=== PATIENT | female | born 1965 | race Caucasian/White ===

== ENCOUNTER 2021-01-05 14:22 | Inpatient (IN) | payer MEDICARE, OTHER ==
[2021-01-05] MEDS ORDERED: ONDANSETRON 4 MG/2 ML VIAL IVP STA (14:33)
[2021-01-05] MEDS ORDERED: SODIUM CHLORIDE 0.9% 1,000 ML IV STA (14:33)
--- NOTE | 2021-01-05 14:37 | ED ---
General Adult HPI - General Stated complaint: High blood sugar Time Seen by Provider: 01/05/21 14:23 - History of Present Illness Initial comments: Dictation was produced using [employer] dictation software. please excuse any grammatical, word or spelling errors. Chief Complaint: 55-year-old female brought in by EMS for elevated blood sugar, nausea and vomiting and total body pain History of Present Illness: Patient is a 55-year-old female she is an insulin- dependent diabetic. Patient was brought in by EMS for elevated blood sugar n ausea and vomiting. [facility]. Supposedly there is a warrant for her respiration was just released today. Over the last 48 hours she's been without any of her medications. Patient has not had insulin since 2 days ago. Patient also has been without her analgesics. EMS was called. EMS reports that patient's blood sugar was elevated. She had several bouts of his emesis. Patient complains of total body pain. The ROS documented in this emergency department record has been reviewed and confirmed by me. Those systems with pertinent positive or negative responses have been documented in the HPI. All other systems are other negative and/or noncontributory. PHYSICAL EXAM: General Impression: Alert and oriented x3, acute distress secondary to nausea and vomiting HEENT: Normocephalic atraumatic, extra-ocular movements intact, pupils equal and reactive to light bilaterally, dry mucous membranes Cardiovascular: Heart regular rate and rhythm Chest: Able to complete full sentences, no retractions, no tachypnea Abdomen: abdomen soft, diffuse tenderness, non-distended, no organomegaly Musculoskeletal: Pulses present and equal in all extremities, no peripheral edema Motor: no focal deficits noted Neurological: CN II-XII grossly intact, no focal motor or sensory deficits noted Skin: Intact with no visualized rashes ED course: 55-year-old insulin-dependent dependent diabetic presents to the emergency Department for hyperglycemia, nausea vomiting total body pain. Laboratory evaluation obtained. Mild leukocytosis of 12.0. Venous blood gas shows pH of 7.36 by mouth CO2 of 35 with a bicarb of 20. Metabolic panel shows bicarb of 18 with gap of 13. Glucose is 504. Clinical presentation consistent with DKA. Her EKGs mild with bicarb of 18. Case is discussed with Dr. Keyes who agreeable with fluid administration and aliquots of insulin. Patient will be admitted under the care of [facility] hospitalist group. - Related Data Allergies Allergy/AdvReac Type Severity Reaction Status Date / Time No Known Allergies Allergy Verified 01/05/21 16:07 Review of Systems ROS Statement: Those systems with pertinent positive or pertinent negative responses have been documented in the HPI. ROS Other: All systems not noted in ROS Statement are negative. Course Vital Signs 01/05/21 01/05/21 14:24 15:31 Temperature 97.7 F Pulse Rate 70 63 Respiratory 18 18 Rate Blood Pressure 222/104 208/111 O2 Sat by Pulse 95 97 Oximetry Medical Decision Making - Lab Data Result diagrams: 01/05/21 15:06 01/05/21 15:06 Lab Results 01/05/21 01/05/21 01/05/21 Range/Units 14:38 15:06 15:06 WBC 12.0 H (3.8-10.6) k/uL RBC 4.00 (3.80-5.40) m/uL Hgb 12.5 (11.4-16.0) gm/dL Hct 38.4 (34.0-46.0) % MCV 96.0 (80.0-100.0) fL MCH 31.2 (25.0-35.0) pg MCHC 32.5 (31.0-37.0) g/dL RDW 13.3 (11.5-15.5) % Plt Count 253 (150-450) k/uL MPV 7.9 Neutrophils % 89 % Lymphocytes % 8 % Monocytes % 2 % Eosinophils % 1 % Basophils % 0 % Neutrophils # 10.7 H (1.3-7.7) k/uL Lymphocytes # 1.0 (1.0-4.8) k/uL Monocytes # 0.3 (0-1.0) k/uL Eosinophils # 0.1 (0-0.7) k/uL Basophils # 0.0 (0-0.2) k/uL VBG pH (7.31-7.41) VBG pCO2 (37-51) mmHg VBG HCO3 (24-28) mmol/L Sodium 133 L (137-145) mmol/L Potassium 4.4 (3.5-5.1) mmol/L Chloride 102 (98-107) mmol/L Carbon Dioxide 18 L (22-30) mmol/L Anion Gap 13 mmol/L BUN 26 H (7-17) mg/dL Creatinine 0.71 (0.52-1.04) mg/dL Est GFR (CKD-EPI)AfAm >90 (>60 ml/min/1.73 sqM) Est GFR (CKD-EPI)NonAf >90 (>60 ml/min/1.73 sqM) Glucose 504 H* (74-99) mg/dL POC Glucose (mg/dL) 554 H (75-99) mg/dL POC Glu [employer] ID Belval, Cyn Plasma Lactic Acid Mitul (0.7-2.0) mmol/L Calcium 9.9 (8.4-10.2) mg/dL Magnesium 1.8 (1.6-2.3) mg/dL Total Bilirubin 0.7 (0.2-1.3) mg/dL AST 30 (14-36) U/L ALT 17 (4-34) U/L Alkaline Phosphatase 142 H (38-126) U/L Total Protein 7.7 (6.3-8.2) g/dL Albumin 4.1 (3.5-5.0) g/dL Acetone, Qual Positive (Negative) 01/05/21 01/05/21 Range/Units 15:06 15:06 WBC (3.8-10.6) k/uL RBC (3.80-5.40) m/uL Hgb (11.4-16.0) gm/dL Hct (34.0-46.0) % MCV (80.0-100.0) fL MCH (25.0-35.0) pg MCHC (31.0-37.0) g/dL RDW (11.5-15.5) % Plt Count (150-450) k/uL MPV Neutrophils % % Lymphocytes % % Monocytes % % Eosinophils % % Basophils % % Neutrophils # (1.3-7.7) k/uL Lymphocytes # (1.0-4.8) k/uL Monocytes # (0-1.0) k/uL Eosinophils # (0-0.7) k/uL Basophils # (0-0.2) k/uL VBG pH 7.36 (7.31-7.41) VBG pCO2 35 L (37-51) mmHg VBG HCO3 20 L (24-28) mmol/L Sodium (137-145) mmol/L Potassium (3.5-5.1) mmol/L Chloride (98-107) mmol/L Carbon Dioxide (22-30) mmol/L Anion Gap mmol/L BUN (7-17) mg/dL Creatinine (0.52-1.04) mg/dL Est GFR (CKD-EPI)AfAm (>60 ml/min/1.73 sqM) Est GFR (CKD-EPI)NonAf (>60 ml/min/1.73 sqM) Glucose (74-99) mg/dL POC Glucose (mg/dL) (75-99) mg/dL POC Glu [employer] ID Plasma Lactic Acid Mitul 1.5 (0.7-2.0) mmol/L Calcium (8.4-10.2) mg/dL Magnesium (1.6-2.3) mg/dL Total Bilirubin (0.2-1.3) mg/dL AST (14-36) U/L ALT (4-34) U/L Alkaline Phosphatase (38-126) U/L Total Protein (6.3-8.2) g/dL Albumin (3.5-5.0) g/dL Acetone, Qual (Negative) Critical Care Time Critical Care Time: Yes Total Critical Care Time: 33 Disposition Clinical Impression: DKA (diabetic ketoacidosis) Disposition: ADMITTED IP TO THIS [facility] Condition: Fair Referrals: Joshua Moseley MD [Primary Care Provider] - 1-2 days
[2021-01-05 14:39] LABS: Glucose,Whole Blood 554 mg/dL (75-99)
[2021-01-05 15:15] LABS: Basophils % (A) 0 %; Eosinophils # (A) 0.1 k/uL (0-0.7); Eosinophils % (A) 1 %; HCT 38.4 % (34.0-46.0); HGB 12.5 gm/dL (11.4-16.0); Lymphocytes % (A) 8 %; MCH 31.2 pg (25.0-35.0); MCHC 32.5 g/dL (31.0-37.0); Mean Platelet Volume 7.9; Monocytes # (A) 0.3 k/uL (0-1.0); Monocytes % (A) 2 %; Neutrophils # (A) 10.7 k/uL (1.3-7.7); Neutrophils % (A) 89 %; Platelet Count 253 k/uL (150-450); RDW 13.3 % (11.5-15.5); VBG PH 7.36 (7.31-7.41)
[2021-01-05 15:36] LABS: ALT 17 U/L (4-34); AST 30 U/L (14-36); African American GFR (CKD) >90 (>60 ml/min/1.73 sqM); Albumin 4.1 g/dL (3.5-5.0); Alkaline Phosphatase 142 U/L (38-126); Anion Gap 13 mmol/L; Blood Urea Nitrogen 26 mg/dL (7-17); Calcium 9.9 mg/dL (8.4-10.2); Carbon Dioxide 18 mmol/L (22-30); Chloride 102 mmol/L (98-107); Magnesium 1.8 mg/dL (1.6-2.3); Non-African American GFR(CKD) >90 (>60 ml/min/1.73 sqM); Potassium 4.4 mmol/L (3.5-5.1); Sodium 133 mmol/L (137-145); Total Bilirubin 0.7 mg/dL (0.2-1.3); Total Protein 7.7 g/dL (6.3-8.2)
[2021-01-05 15:42] LABS: Glucose 504 mg/dL (74-99)
[2021-01-05] MEDS ORDERED: LACTATED RINGERS 1,000 ML IV ONE (15:52)
[2021-01-05] MEDS ORDERED: HYDROmorphone 0.5 MG/0.5 ML SYRINGE IVP STA (15:55)
[2021-01-05] MEDS ORDERED: INSULIN REGULAR 100 UNIT/ML VIAL (IV) IV ONE (16:01)
[2021-01-05] MEDS: METOCLOPRAMIDE 5 MG/ML 2 ML VIAL IVP STA ×2 (16:05→16:07)
[2021-01-05] MEDS ORDERED: INSULIN REGULAR 100 UNIT/ML VIAL (IM/SQ) SQ ONE (16:21)
[2021-01-05] MEDS ORDERED: PROMETHAZINE 25 MG TAB PO STA (17:25)
[2021-01-05 17:26] LABS: Glucose,Whole Blood 316 mg/dL (75-99)
[2021-01-05] MEDS ORDERED: hydrALAZINE HCL 20 MG/ML 1 ML VIAL IVP PRN (18:15)
[2021-01-05] MEDS ORDERED: LORazepam 2 MG/ML INJ IV STA (18:15)
[2021-01-05 18:32] LABS: Glucose,Whole Blood 266 mg/dL (75-99)
[2021-01-05] MEDS ORDERED: ALBUTEROL NEBULIZED 2.5 MG/3 ML INHALATION PRN (18:43)
[2021-01-05 20:28] LABS: African American GFR (CKD) >90 (>60 ml/min/1.73 sqM); Blood Urea Nitrogen 22 mg/dL (7-17); Carbon Dioxide 23 mmol/L (22-30); Chloride 104 mmol/L (98-107); Glucose 250 mg/dL (74-99); Non-African American GFR(CKD) >90 (>60 ml/min/1.73 sqM); Phosphorus 2.2 mg/dL (2.5-4.5)
[2021-01-05 20:29] LABS: Anion Gap 9 mmol/L; Potassium 3.6 mmol/L (3.5-5.1); Sodium 136 mmol/L (137-145)
[2021-01-05 20:47] LABS: Glucose,Whole Blood 275 mg/dL (75-99)
[2021-01-05] MEDS: ONDANSETRON 4 MG/2 ML VIAL IVP PRN (21:39)
[2021-01-05] MEDS ORDERED: PANTOPRAZOLE 40 MG/10 ML VIAL IVP ONE (23:41)
[2021-01-05] MEDS ORDERED: INSULIN ASPART (NovoLOG) 100 UNIT/ML VIAL SQ ONE (23:42)
[2021-01-05] MEDS: MORPHINE SULFATE 4 MG/ML SYRINGE IVP PRN (23:54)
[2021-01-05] MEDS: METOCLOPRAMIDE 5 MG/ML 2 ML VIAL IVP PRN (23:54)
[2021-01-06] MEDS ORDERED: SCOPOLAMINE 1.5MG/72HR PATCH TRANSDERM SCH
[2021-01-06 00:55] LABS: Glucose,Whole Blood 320 mg/dL (75-99)
[2021-01-06] MEDS: MORPHINE SULFATE ER 30 MG TABLET PO SCH ×3 (01:41→20:50)
[2021-01-06] MEDS: traZODone HCL 50 MG TAB PO SCH ×2 (01:41→20:50)
[2021-01-06] MEDS: RANOLAZINE 500 MG TAB.ER.12H PO SCH ×3 (01:41→20:50)
[2021-01-06] MEDS: QUEtiapine 100 MG TAB PO SCH ×2 (01:41→20:50)
[2021-01-06] MEDS: PANTOPRAZOLE 40 MG TABLET PO SCH ×2 (01:41→07:34)
[2021-01-06] MEDS: CYCLOBENZAPRINE 5 MG TAB PO SCH ×4 (01:41→22:55)
[2021-01-06] MEDS: ONDANSETRON 4 MG/2 ML VIAL IVP PRN (03:25)
[2021-01-06] MEDS: MORPHINE SULFATE 4 MG/ML SYRINGE IVP PRN ×5 (03:31→22:55)
[2021-01-06 07:11] LABS: Glucose,Whole Blood 500 mg/dL (75-99)
[2021-01-06] MEDS: METOCLOPRAMIDE 5 MG/ML 2 ML VIAL IVP PRN (07:28)
[2021-01-06] MEDS: ASPIRIN 81 MG PO SCH (07:34)
[2021-01-06] MEDS: lamoTRIgine 25 MG TAB PO SCH (07:34)
[2021-01-06] MEDS: lisinopriL 10 MG TAB PO SCH (07:34)
[2021-01-06] MEDS: DILTIAZEM CD 180 MG CAP.ER.24H PO SCH (07:35)
[2021-01-06] MEDS ORDERED: INSULIN REGULAR 100 UNIT/ML VIAL (IV) IV ONE ×3 (08:13→12:28)
[2021-01-06 09:54] LABS: Glucose,Whole Blood 510 mg/dL (75-99)
[2021-01-06 10:55] VITALS: BMI 25.0
[2021-01-06 11:23] LABS: Glucose,Whole Blood 496 mg/dL (75-99)
[2021-01-06 11:59] LABS: African American GFR (CKD) 80 (>60 ml/min/1.73 sqM); Anion Gap 15 mmol/L; Blood Urea Nitrogen 27 mg/dL (7-17); Carbon Dioxide 18 mmol/L (22-30); Chloride 94 mmol/L (98-107); Glucose 491 mg/dL (74-99); Non-African American GFR(CKD) 69 (>60 ml/min/1.73 sqM); Potassium 3.9 mmol/L (3.5-5.1); Sodium 127 mmol/L (137-145)
[2021-01-06 12:49] LABS: Glucose,Whole Blood 280 mg/dL (75-99)
[2021-01-06] MEDS: SODIUM CHLORIDE 0.9% 1,000 ML IV SCH ×3 (12:49→19:40)
--- NOTE | 2021-01-06 13:56 | P.HPIM ---
History of Present Illness H&P Date: 01/05/21 Chief Complaint: Elevated blood sugar 55-year-old female patient with history of insulin-dependent diabetes, brought to ED by EMS for markedly elevated blood sugar and with intractable nausea and vomiting; patient is recently in shelter for past 2 days for an arrest warrant and reportedly patient has been without her medications for past 48 hours; in the shelter patient started having nausea and vomiting and had several bouts of emesis along with acute body aches and pains and she was brought to ED for further evaluation In the ED workup revealed elevated white blood count of 12.0, venous blood gas showed pH of 7.36, CO2 of 35 and bicarb 20; metabolic panel reveals bicarb of 18 and anion gap of 13 with blood glucose of 504; patient is admitted for further treatment of DKA Review of Systems REVIEW OF SYSTEMS: CONSTITUTIONAL: No fever, no malaise, no fatigue. HEENT: No recent visual problems or hearing problems. Denied any sore throat. CARDIOVASCULAR: No chest pain, orthopnea, PND, no palpitations, no syncope. PULMONARY: No shortness of breath, no cough, no hemoptysis. GASTROINTESTINAL: No diarrhea, no nausea, no vomiting, no abdominal pain. NEUROLOGICAL: No headaches, no weakness, no numbness. HEMATOLOGICAL: Denies any bleeding or petechiae. GENITOURINARY: Denies any burning micturition, frequency, or urgency. MUSCULOSKELETAL/RHEUMATOLOGICAL: Denies any joint pain, swelling, or any muscle pain. ENDOCRINE: Denies any polyuria or polydipsia. The rest of the 14-point review of systems is negative. Past Medical History Past Medical History: Diabetes Mellitus Additional Past Medical History / Comment(s): gastro issues, History of Any Multi-Drug Resistant Organisms: None Reported Past Surgical History: Cholecystectomy Additional Past Surgical History / Comment(s): leg surgery, Past Psychological History: Anxiety, Depression Smoking Status: Current every day smoker Past Alcohol Use History: None Reported Past Drug Use History: Marijuana Medications and Allergies Home Medications Medication Instructions Recorded Confirmed Type Albuterol Inhaler [Ventolin Hfa 2 puff INHALATION RT-Q4H PRN 01/05/21 01/05/21 History Inhaler] Aspirin EC [Ecotrin Low Dose] 81 mg PO DAILY 01/05/21 01/05/21 History Cyclobenzaprine [Flexeril] 5 mg PO TID 01/05/21 01/05/21 History Diclofenac Sodium Gel [Voltaren 2 gm TOPICAL DAILY PRN 01/05/21 01/05/21 History Gel] Diltiazem HCl [Cartia Xt] 180 mg PO DAILY 01/05/21 01/05/21 History EPINEPHrine (Auto Inject) [Epipen] 0.3 mg IM ONCE PRN 01/05/21 01/05/21 History Gabapentin 600 mg PO QID 01/05/21 01/05/21 History Gamunex-C 5gm/50ml 1 injection SQ Q28D 01/05/21 01/05/21 History Insulin Aspart [NovoLOG Flexpen] See Protocol SQ AC-TID 01/05/21 01/05/21 History Insulin Degludec [Tresiba 15 units SQ BID 01/05/21 01/05/21 History Flextouch U-100 Pen] Morphine Sulfate ER [Ms Contin] 30 mg PO Q12HR 01/05/21 01/05/21 History Omeprazole 20 mg PO BID 01/05/21 01/05/21 History Promethazine HCl 12.5 mg PO QID PRN 01/05/21 01/05/21 History QUEtiapine [SEROquel] 100 mg PO HS 01/05/21 01/05/21 History Ranolazine [Ranexa] 500 mg PO BID 01/05/21 01/05/21 History lamoTRIgine [LaMICtal] 25 mg PO DAILY 01/05/21 01/05/21 History lisinopriL [Zestril] 10 mg PO DAILY 01/05/21 01/05/21 History traZODone HCL 150 mg PO HS 01/05/21 01/05/21 History Allergies Allergy/AdvReac Type Severity Reaction Status Date / Time No Known Allergies Allergy Verified 01/05/21 16:07 Physical Exam Vitals: Vital Signs Temp Pulse Resp BP Pulse Ox 01/05/21 17:42 70 16 97 01/05/21 17:29 217/106 01/05/21 15:31 63 18 208/111 97 01/05/21 14:24 97.7 F 70 18 222/104 95 Intake and Output 01/05/21 01/05/21 01/05/21 06:59 14:59 22:59 Other: Weight 68.039 kg - Constitutional General appearance: Present: average body habitus, cooperative, no acute distress - EENT Eyes: Present: anicteric sclerae, EOMI, PERRLA, normal appearance ENT: Present: hearing grossly normal, normal oropharynx Ears: bilateral: normal - Neck Neck: Present: normal ROM. Absent: lymphadenopathy, rigidity, thyromegaly Carotids: negative: bruit present Thyroid: bilateral: normal size, negative: enlarged, nodule - Respiratory Respiratory: bilateral: CTA, negative: rales, rhonchi, wheezing - Cardiovascular Rhythm: regular Heart sounds: normal: S1, S2 Abnormal Heart Sounds: Absent: systolic murmur, diastolic murmur - Gastrointestinal General gastrointestinal: Present: normal bowel sounds, soft. Absent: distended, organomegaly, tenderness - Genitourinary Genitourinary Comment(s): deferred - Integumentary Integumentary: Present: normal turgor. Absent: jaundiced, rash, ulcer - Neurologic Neurologic: Present: CNII-XII intact. Absent: focal deficits - Musculoskeletal Musculoskeletal: Present: gait normal, strength equal bilaterally - Psychiatric Psychiatric: Present: A&O x's 3, appropriate affect, intact judgment & insight Results CBC & Chem 7: 01/05/21 15:06 01/05/21 15:06 Labs: Abnormal Lab Results - Last 24 Hours (Table) 01/05/21 01/05/21 01/05/21 Range/Units 14:38 15:06 15:06 WBC 12.0 H (3.8-10.6) k/uL Neutrophils # 10.7 H (1.3-7.7) k/uL VBG pCO2 (37-51) mmHg VBG HCO3 (24-28) mmol/L Sodium 133 L (137-145) mmol/L Carbon Dioxide 18 L (22-30) mmol/L BUN 26 H (7-17) mg/dL Glucose 504 H* (74-99) mg/dL POC Glucose (mg/dL) 554 H (75-99) mg/dL Alkaline Phosphatase 142 H (38-126) U/L 01/05/21 01/05/21 01/05/21 Range/Units 15:06 17:25 18:29 WBC (3.8-10.6) k/uL Neutrophils # (1.3-7.7) k/uL VBG pCO2 35 L (37-51) mmHg VBG HCO3 20 L (24-28) mmol/L Sodium (137-145) mmol/L Carbon Dioxide (22-30) mmol/L BUN (7-17) mg/dL Glucose (74-99) mg/dL POC Glucose (mg/dL) 316 H 266 H (75-99) mg/dL Alkaline Phosphatase (38-126) U/L Assessment and Plan Assessment: 1. Mild DKA/diabetes mellitus type 1 - Patient had blood work done in ED revealing mild DKA; patient has been given IV insulin bolus form along with IV fluids; we plan to monitor basic metabolic panel every 4 hours with plans to start on an insulin drip pending clinical course - Order BMP every 4 hours 2. Accelerated hypertension/hypertension - Patient is on lisinopril 10 mg and Cardizem 180 mg daily daily at home - Blood pressure is markedly elevated; we will order IV hydralazine along with resuming current home medications 3. Intractable nausea and vomiting; patient reports Ativan being effective for nausea; hasn't had any success with IV Reglan, Zofran or Phenergan 4. Asthma; not in exacerbation; continue with Ventolin inhaler 2 puffs 4 times a day when necessary 5. CAD/angina; continue with aspirin and Ranexa 500 mg twice a day 6. Chronic pain; patient uses morphine sulfate 30 mg by mouth every 12 hours along with Flexeril 5 mg by mouth 3 times a day DVT prophylaxis; SCDs CODE STATUS; full code
[2021-01-06] MEDS: NICOTINE 14MG/24HR PATCH TRANSDERM SCH (14:34)
[2021-01-06] MEDS: LORazepam 1 MG TAB PO PRN ×2 (14:34→20:52)
[2021-01-06 16:02] LABS: African American GFR (CKD) 62 (>60 ml/min/1.73 sqM); Anion Gap 10 mmol/L; Blood Urea Nitrogen 30 mg/dL (7-17); Calcium 8.8 mg/dL (8.4-10.2); Carbon Dioxide 22 mmol/L (22-30); Chloride 94 mmol/L (98-107); Glucose 313 mg/dL (74-99); Non-African American GFR(CKD) 54 (>60 ml/min/1.73 sqM); Potassium 4.1 mmol/L (3.5-5.1); Sodium 126 mmol/L (137-145)
[2021-01-06 17:38] LABS: Glucose,Whole Blood 451 mg/dL (75-99)
[2021-01-06] MEDS: INSULIN ASPART (NovoLOG) 100 UNIT/ML VIAL SQ SCH ×2 (18:04→21:07)
--- NOTE | 2021-01-06 19:57 | P.PN ---
Subjective Progress Note Date: 01/06/21 Principal diagnosis: Hyperglycemia/mild DKA Panic disorder/anxiety Accelerated hypertension Intractable nausea and vomiting 55-year-old female patient with history of insulin-dependent diabetes, brought to ED by EMS for markedly elevated blood sugar and with intractable nausea and vomiting; [facility] and reportedly patient has been without her medications for past 48 hours; in the [facility] patient started having nausea and vomiting and had several bouts of emesis along with acute body aches and pains and she was brought to ED for further evaluation In the ED workup revealed elevated white blood count of 12.0, venous blood gas showed pH of 7.36, CO2 of 35 and bicarb 20; metabolic panel reveals bicarb of 18 and anion gap of 13 with blood glucose of 504; patient is admitted for further treatment of DKA Objective - Vital Signs Vital signs: Vital Signs Temp 99.4 F 01/06/21 11:40 Pulse 96 01/06/21 11:40 Resp 20 01/06/21 11:40 BP 107/69 01/06/21 11:40 Pulse Ox 97 01/06/21 11:40 Intake & Output 01/06/21 01/06/21 01/07/21 06:59 18:59 06:59 Intake Total 420 1800 Output Total 700 Balance -280 1800 Weight 68.039 kg 68.039 kg Intake: Intake, IV Titration 400 1800 Amount Lactated Ringers 1,000 ml 400 @ 150 mls/hr IV .Q6H40M ONE Rx#:[id number] Sodium Chloride 0.9% 1, 1800 000 ml @ 150 mls/hr IV . Q6H40M YUSEF Rx#:[id number] Oral 20 Output: Gastric Drainage 100 Emesis 600 Other: Voiding Method Toilet # Voids 2 1 - Exam - Constitutional General appearance: Present: average body habitus, cooperative, no acute distress - EENT Eyes: Present: anicteric sclerae, EOMI, PERRLA, normal appearance ENT: Present: hearing grossly normal, normal oropharynx Ears: bilateral: normal - Neck Neck: Present: normal ROM. Absent: lymphadenopathy, rigidity, thyromegaly Carotids: negative: bruit present Thyroid: bilateral: normal size, negative: enlarged, nodule - Respiratory Respiratory: bilateral: CTA, negative: rales, rhonchi, wheezing - Cardiovascular Rhythm: regular Heart sounds: normal: S1, S2 Abnormal Heart Sounds: Absent: systolic murmur, diastolic murmur - Gastrointestinal General gastrointestinal: Present: normal bowel sounds, soft. Absent: distend ed, organomegaly, tenderness - Genitourinary Genitourinary Comment(s): deferred - Integumentary Integumentary: Present: normal turgor. Absent: jaundiced, rash, ulcer - Neurologic Neurologic: Present: CNII-XII intact. Absent: focal deficits - Musculoskeletal Musculoskeletal: Present: gait normal, strength equal bilaterally - Psychiatric Psychiatric: Present: A&O x's 3, appropriate affect, intact judgment & insight - Labs CBC & Chem 7: 01/05/21 15:06 01/06/21 15:15 Labs: Abnormal Lab Results - Last 24 Hours (Table) 01/05/21 01/05/21 01/06/21 Range/Units 20:08 20:45 00:52 Sodium 136 L (137-145) mmol/L Chloride (98-107) mmol/L Carbon Dioxide (22-30) mmol/L BUN 22 H (7-17) mg/dL Creatinine (0.52-1.04) mg/dL Glucose 250 H (74-99) mg/dL POC Glucose (mg/dL) 275 H 320 H (75-99) mg/dL Phosphorus 2.2 L (2.5-4.5) mg/dL 01/06/21 01/06/21 01/06/21 Range/Units 07:10 09:52 11:05 Sodium 127 L (137-145) mmol/L Chloride 94 L (98-107) mmol/L Carbon Dioxide 18 L (22-30) mmol/L BUN 27 H (7-17) mg/dL Creatinine (0.52-1.04) mg/dL Glucose 491 H (74-99) mg/dL POC Glucose (mg/dL) 500 H 510 H (75-99) mg/dL Phosphorus (2.5-4.5) mg/dL 01/06/21 01/06/21 01/06/21 Range/Units 11:21 12:48 15:15 Sodium 126 L (137-145) mmol/L Chloride 94 L (98-107) mmol/L Carbon Dioxide (22-30) mmol/L BUN 30 H (7-17) mg/dL Creatinine 1.16 H (0.52-1.04) mg/dL Glucose 313 H (74-99) mg/dL POC Glucose (mg/dL) 496 H 280 H (75-99) mg/dL Phosphorus (2.5-4.5) mg/dL 01/06/21 Range/Units 17:37 Sodium (137-145) mmol/L Chloride (98-107) mmol/L Carbon Dioxide (22-30) mmol/L BUN (7-17) mg/dL Creatinine (0.52-1.04) mg/dL Glucose (74-99) mg/dL POC Glucose (mg/dL) 451 H (75-99) mg/dL Phosphorus (2.5-4.5) mg/dL Assessment and Plan Assessment: 1. Mild DKA/diabetes mellitus type 1 - Patient had blood work done in ED revealing mild DKA; patient has been given IV insulin bolus form along with IV fluids; we plan to monitor basic metabolic panel every 4 hours with plans to start on an insulin drip pending clinical course - Order BMP every 4 hours 2. Accelerated hypertension/hypertension - Patient is on lisinopril 10 mg and Cardizem 180 mg daily daily at home - Blood pressure is markedly elevated; we will order IV hydralazine along with resuming current home medications 3. Intractable nausea and vomiting; patient reports Ativan being effective for nausea; hasn't had any success with IV Reglan, Zofran or Phenergan 4. Asthma; not in exacerbation; continue with Ventolin inhaler 2 puffs 4 times a day when necessary 5. CAD/angina; continue with aspirin and Ranexa 500 mg twice a day 6. Chronic pain; patient uses morphine sulfate 30 mg by mouth every 12 hours a long with Flexeril 5 mg by mouth 3 times a day DVT prophylaxis; SCDs CODE STATUS; full code
[2021-01-06] MEDS ORDERED: INSULIN DETEMIR (LEVEMIR) 100 UNIT/ML SYR SQ SCH (21:00)
[2021-01-06 21:01] LABS: Glucose,Whole Blood 311 mg/dL (75-99)
[2021-01-07 06:18] LABS: African American GFR (CKD) 88 (>60 ml/min/1.73 sqM); Anion Gap 7 mmol/L; Blood Urea Nitrogen 29 mg/dL (7-17); Calcium 8.8 mg/dL (8.4-10.2); Carbon Dioxide 22 mmol/L (22-30); Chloride 108 mmol/L (98-107); Non-African American GFR(CKD) 76 (>60 ml/min/1.73 sqM); Potassium 3.4 mmol/L (3.5-5.1); Sodium 137 mmol/L (137-145)
[2021-01-07 06:23] LABS: Glucose 29 mg/dL (74-99)
[2021-01-07 06:29] LABS: Glucose,Whole Blood 86 mg/dL (75-99)
[2021-01-07] MEDS: ASPIRIN 81 MG PO SCH (08:43)
[2021-01-07] MEDS: lamoTRIgine 25 MG TAB PO SCH (08:44)
[2021-01-07] MEDS: RANOLAZINE 500 MG TAB.ER.12H PO SCH (08:44)
[2021-01-07] MEDS: CYCLOBENZAPRINE 5 MG TAB PO SCH (08:44)
[2021-01-07] MEDS: DILTIAZEM CD 180 MG CAP.ER.24H PO SCH (08:44)
[2021-01-07] MEDS: PANTOPRAZOLE 40 MG TABLET PO SCH (08:44)
[2021-01-07] MEDS: MORPHINE SULFATE ER 30 MG TABLET PO SCH (08:44)
[2021-01-07] MEDS: NICOTINE 14MG/24HR PATCH TRANSDERM SCH (08:44)
[2021-01-07] MEDS: lisinopriL 10 MG TAB PO SCH (08:44)
[2021-01-07] MEDS: INSULIN ASPART (NovoLOG) 100 UNIT/ML VIAL SQ SCH ×2 (08:48→12:01)
[2021-01-07] MEDS: SODIUM CHLORIDE 0.9% 1,000 ML IV SCH (08:48)
[2021-01-07 09:29] LABS: Glucose,Whole Blood 65 mg/dL (75-99)
[2021-01-07] MEDS: MORPHINE SULFATE 4 MG/ML SYRINGE IVP PRN (09:34)
[2021-01-07 09:51] LABS: Glucose,Whole Blood 87 mg/dL (75-99)
[2021-01-07 11:37] LABS: Glucose,Whole Blood 97 mg/dL (75-99)
[2021-01-07 12:32] VITALS: BP 137/80; PULSE 64; RESP 22; TEMP 97.6
[2021-01-07] MEDS: LORazepam 1 MG TAB PO PRN (13:29)
[2021-01-07 13:42] LABS: Glucose,Whole Blood 95 mg/dL (75-99)
== END 2021-01-07 15:24 | disposition home or self-care (01) | DRG 639 ==
LOC: EC 14:22 → 5NMEDONC 16:02
PROVIDERS: ADMIT Internal Medicine; ATTEND Internal Medicine
DX: E10.10 Type 1 diabetes mellitus with ketoacidosis without coma (principal); D72.829 Elevated white blood cell count, unspecified; I25.119 Atherosclerotic heart disease of native coronary artery with unspecified angina pectoris; Z20.822 Contact with and (suspected) exposure to COVID-19; F32.9 Major depressive disorder, single episode, unspecified; F41.0 Panic disorder [episodic paroxysmal anxiety]; F17.210 Nicotine dependence, cigarettes, uncomplicated; R11.2 Nausea with vomiting, unspecified; G89.29 Other chronic pain; I10 Essential (primary) hypertension; J45.909 Unspecified asthma, uncomplicated; Z79.4 Long term (current) use of insulin; Z79.899 Other long term (current) drug therapy; Z79.82 Long term (current) use of aspirin
CPT/HCPCS: 36415; 80048; 80051; 80053; 82009; 82565; 82803; 82947; 83605; 83735; 84100; 84520; 85025; 87635; 93005; 96361; 96374; 99291

== ENCOUNTER 2021-11-12 12:10 | Day surgery (SDC) | payer MEDICARE, OTHER ==
[2021-11-07 14:41] VITALS: BMI 28.5
[~2021-11-12 12:10] MED LIST: ACETAMINOPHEN TAB 500 MG TAB PO PRN; DEXAMETHASONE SOD PHOSPHATE 4 MG/ML 1 ML VIAL IV ONE; HEPARIN SODIUM,PORCINE/PF 5,000 UNIT/0.5 ML SYRINGE SQ PRN; LACTATED RINGERS 1,000 ML IV SCH; LIDOCAINE 1% (10MG/ML) FOR IV START INTRADERMA PRN; MIDAZOLAM 2 MG/2 ML VIAL IV PRN; ONDANSETRON 4 MG/2 ML VIAL IVP ONE; Pre Op ABX Message 1 EACH MISC MISCELLANE ONE
--- NOTE | 2021-11-12 12:31 | P.GSHP ---
History of Present Illness H&P Date: 11/12/21 Chief Complaint: Guilvivianin-Larry 56-year-old female here today for Port-A-Cath placement. 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 Patient has a PICC line in the right arm currently. She has had infections of ports and pacemakers in the past. Prior right chest wall pacemaker scar and left chest wall Port-A-Cath scar noted. No fevers. Past Medical History Past Medical History: Cancer, Diabetes Mellitus, Deep Vein Thrombosis (DVT), GERD/Reflux, Hypertension, Pulmonary Embolus (PE) Additional Past Medical History / Comment(s): CONSTIPATION, STOMACH ULCER , BLADDER CANCER X3. CERVICAL CANCER , WALKS WITH CANE, ANEMIA, PICC LINE , GUILLIAN-LARRY'E (CIPD) History of Any Multi-Drug Resistant Organisms: None Reported Past Surgical History: Cholecystectomy, Pacemaker Additional Past Surgical History / Comment(s): RIGHT leg surgery, RIGHT AND LEFT WRIST WITH HARDWARE, RIGHT HAND SURGERY- LITTLE FINGER, PACEMAKER INSERTION AND THAN REMOVED, MED PORT, BLADDER IMPLANT AND THAN REMOVED, PICC LINE Past Anesthesia/Blood Transfusion Reactions: Postoperative Nausea & Vomiting (PONV) Type of Cardiac Device: Permanent Pacemaker Device Placement Date:: 2011 AND REMOVED 2019 Past Psychological History: Anxiety, Bipolar, Depression, PTSD Smoking Status: Former smoker Past Alcohol Use History: None Reported Additional Past Alcohol Use History / Comment(s): STARTED SMOKING AT AGE 10 QUIT APR 2021 SMOKED 1 PPD Past Drug Use History: Marijuana Additional Drug Use History / Comment(s): DAILY - INSTRUCTED TO HOLD 24 HOURS PRIOR TO PROCEDURE - Past Family History Mother Family Medical History: Cancer Father Family Medical History: Cancer Sister(s) Family Medical History: Cancer Medications and Allergies Home Medications Medication Instructions Recorded Confirmed Type Albuterol Inhaler [Ventolin Hfa 2 puff INHALATION RT-Q4H PRN 01/05/21 11/07/21 History Inhaler] Diclofenac Sodium Gel [Voltaren 2 gm TOPICAL DAILY PRN 01/05/21 11/07/21 History Gel] EPINEPHrine (Auto Inject) [Epipen] 0.3 mg IM ONCE PRN 01/05/21 11/07/21 History Gabapentin 600 mg PO QID 01/05/21 11/07/21 History Gamunex-C 5gm/50ml 1 injection SQ Q21D 01/05/21 11/07/21 History Insulin Aspart [NovoLOG Flexpen] See Protocol SQ AC-TID 01/05/21 11/07/21 History Insulin Degludec [Tresiba 15 units SQ BID 01/05/21 11/07/21 History Flextouch U-100 Pen] Morphine Sulfate ER [Ms Contin] 30 mg PO Q12HR 01/05/21 11/07/21 History Omeprazole 20 mg PO BID 01/05/21 11/07/21 History Promethazine HCl 12.5 mg PO QID PRN 01/05/21 11/07/21 History QUEtiapine [SEROquel] 100 mg PO HS 01/05/21 11/07/21 History Ranolazine [Ranexa] 500 mg PO BID 01/05/21 11/07/21 History lamoTRIgine [LaMICtal] 150 mg PO BID 01/05/21 11/07/21 History traZODone HCL 150 mg PO HS 01/05/21 11/07/21 History Apixaban [Eliquis] 5 mg PO BID 11/07/21 11/07/21 History Furosemide [Lasix] 20 mg PO DAILY 11/07/21 11/07/21 History HYDROcodone/APAP 7.5-325MG [Hardesty 1 tab PO BID 11/07/21 11/07/21 History 7.5-325] Losartan Potassium [Cozaar] 100 mg PO HS 11/07/21 11/07/21 History Pravastatin Sodium [Pravachol] 20 mg PO DAILY 11/07/21 11/07/21 History carvediloL 25 mg PO BID 11/07/21 11/07/21 History dilTIAZem HCL [dilTIAZem HCL 24Hr 180 mg PO DAILY 11/07/21 11/07/21 History ER] hydrALAZINE HCL [Apresoline] 50 mg PO TID 11/07/21 11/07/21 History hydroCHLOROthiazide 25 mg PO BID 11/07/21 11/07/21 History methocarbamoL [Robaxin-750] 750 mg PO QID PRN 11/07/21 11/07/21 History Allergies Allergy/AdvReac Type Severity Reaction Status Date / Time latex Allergy BLISTERS, Verified 11/07/21 13:54 RED SKIN ITCHING Surgical - Exam Physical exam: General: Well-developed, well-nourished HEENT: Normocephalic, sclerae nonicteric Abdomen: Nontender, nondistended Extremities: No edema, right antecubital PICC line Neuro: Alert and oriented Chest: Right scar from previous pacemaker, left chest wall scar from previous Port-A-Cath Assessment and Plan (1) Guillain-Weston Narrative/Plan: 56-year-old female in need of long-term IV access. We'll proceed with 8-Spanish Port-A-Cath placement at this time. Discussed that we would first attempt the right IJ as our initial approach. Risks of bleeding, infection, DVT, pneumothorax, catheter malfunction, anesthesia related complications were discussed. The patient understands and wishes to proceed. 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
[2021-11-12 12:34] LABS: Glucose,Whole Blood 147 mg/dL (70-110)
[2021-11-12] MEDS ORDERED: LIDOCAINE 1% INJ 10MG/ML (20 ML MDV) SQ ONE ×2 (13:04→13:35)
[2021-11-12] MEDS ORDERED: fentaNYL (PF) 50 MCG/ML 2 ML AMP ONE (13:10)
[2021-11-12] MEDS ORDERED: PROPOFOL 10 MG/ML 20 ML VIAL IV ONE (13:10)
[2021-11-12] MEDS ORDERED: MIDAZOLAM 2 MG/2 ML VIAL ONE (13:10)
[2021-11-12] MEDS ORDERED: SODIUM CHLORIDE 0.9% 100 ML with ceFAZolin 2,000 MG IV ONE ×2 (13:10)
[2021-11-12] MEDS ORDERED: LIDOCAINE 2% INJ 20 MG/ML (2 ML VIAL) ONE (13:10)
[2021-11-12 14:03] VITALS: TEMP 96.8
[2021-11-12] MEDS ORDERED: HYDROcodone/APAP 5-325MG 1 EACH TAB PO PRN (14:05)
[2021-11-12] MEDS ORDERED: ACETAMINOPHEN TAB 325 MG TAB PO PRN (14:05)
[2021-11-12] MEDS ORDERED: NALOXONE 0.4 MG/ML 1 ML VIAL IV PRN (14:05)
--- NOTE | 2021-11-12 14:07 | P.OP ---
Date of Procedure: 11/12/21 Procedure(s) Performed: PREOPERATIVE DIAGNOSIS: Guillain-Larry POSTOPERATIVE DIAGNOSIS: Same PROCEDURE: Port-A-Cath placement with fluoroscopic and ultrasound guidance SURGEON: Jonathan EBL: Minimal ANESTHESIA: Sedation COMPLICATIONS: None OPERATIVE PROCEDURE: Patient was brought and placed on the operative table in the supine position. The patient was sedated per anesthesia that time. The chest and neck were prepped and draped in usual sterile fashion. The ultrasound probe was used to identify the location of the right internal jugular vein. The skin was localized with lidocaine. The Seldinger needle was advanced into the IJ under ultrasound guidance. The wire was advanced through the needle under fluoroscopic guidance into the superior vena cava. A port pocket was created in the right infraclavicular location. The 8-Guatemalan catheter was tunneled from the wire entrance site to the port pocket. The port was then connected to the catheter. The dilator introducer was threaded over the guidewire. The guidewire and dilator were then removed. The catheter was advanced through the introducer and introducer was then removed. The tip was seen to be in the right atrial junction via fluoroscopy. A picture of the radiograph showing the tip at the radial digital junction was taken. Port was flushed with both saline and a Hep-Lock solution. There was good flow both in and out of the port. The port was sutured in underlying tissues using 3-0 silk sutures. The subcutaneous tissues were reapproximated using 3-0 Vicryl sutures and the skin at both locations using 4-0 Monocryl sutures. Skin glue and sterile dressings then applied. DISPOSITION: Stable to recovery room
[2021-11-12] MEDS: HYDROmorphone 0.5 MG/0.5 ML SYRINGE IVP PRN ×4 (14:20→14:42)
[2021-11-12 14:25] VITALS: RESP 16
--- NOTE | 2021-11-12 15:06 | XR ---
EXAMINATION TYPE: XR chest 1V confirm line [facility] DATE OF EXAM: 11/12/2021 COMPARISON: None INDICATION: Line placement TECHNIQUE: Single frontal view of the chest is obtained. FINDINGS: The heart size is normal. The pulmonary vasculature is normal. The lungs are clear. Report is placed on the right with the tip in the distal superior vena cava right atrial junction. No pneumothorax is evident. PICC line is present on the right distal tip appears to be within the super ior vena cava region. Positioning is somewhat difficult due to overlying port catheter. IMPRESSION: 1. Post line placement. Tip of the port is in the superior vena cava right atrial junction and the PI CC line tip appears to be within the superior vena cava region.
[2021-11-12] MEDS ORDERED: HYDROcodone/APAP 7.5-325MG 1 EACH TAB PO ONE (15:22)
[2021-11-12] MEDS ORDERED: HYDROcodone/APAP 7.5-325MG 1 EACH TAB ONE (15:22)
[2021-11-12 15:32] VITALS: BP 187/84; PULSE 63
--- NOTE | 2021-11-12 16:22 | FL ---
Fluoroscopy INDICATION: Pain FINDINGS: Fluoroscopy time: 11 seconds. Images obtained: 2. IMPRESSIONS: 1. Documentation of fluoroscopy.
== END 2021-11-12 16:10 | disposition home or self-care (01) ==
LOC: OR 12:10
PROVIDERS: ATTEND Surgery
DX: G61.0 Guillain-Barre syndrome (principal); Z91.040 Latex allergy status; I10 Essential (primary) hypertension; K21.9 Gastro-esophageal reflux disease without esophagitis; E11.9 Type 2 diabetes mellitus without complications; F31.9 Bipolar disorder, unspecified; F41.9 Anxiety disorder, unspecified; F43.10 Post-traumatic stress disorder, unspecified; Z79.01 Long term (current) use of anticoagulants; Z79.899 Other long term (current) drug therapy; Z79.891 Long term (current) use of opiate analgesic; Z79.4 Long term (current) use of insulin; Z87.891 Personal history of nicotine dependence; Z86.718 Personal history of other venous thrombosis and embolism; Z86.711 Personal history of pulmonary embolism; Z85.51 Personal history of malignant neoplasm of bladder; Z85.41 Personal history of malignant neoplasm of cervix uteri; Z90.49 Acquired absence of other specified parts of digestive tract; Z95.0 Presence of cardiac pacemaker; Z80.9 Family history of malignant neoplasm, unspecified
CPT/HCPCS: 77001; 36561; C1788; J2250; J1100; J2405; J0690; J2001 ×2; J3010; J1642; J2704; J1170; J1644